=== PATIENT | female | born 1945 | race Caucasian/White ===

== ENCOUNTER 2019-12-10 13:03 | Emergency (ER) | payer MEDICARE, BC ==
[~2019-12-10] VITALS: Ht 160 cm; Wt 56.7 kg
[~2019-12-10 13:03] MED LIST: Amaryl2 MG PO; BENZONATATE100 M1 PO; FLUDROCORTISON0.1 MG PO; INSULIN PEN NE1 EACH MC; KLOR-CON M2020 ME1 PO; MAGNESIUM400 M1 PO; METOPROLOL25 MG PO; MIDODRINE HCL2.5 MG PO; NOVOLOG FL100 UNIT/2 SQ; Novolog SQ; PANTOPRAZOLE SO40 MG PO; PLAVIX75 M1 PO; PREDNISONE5 MG PO; TACROLIMUS1 M1 PO; VITAMIN D3400 UNI1 PO
[2019-12-10 14:18] LABS: BASO % 0.2 % (0.0-1.0); EOS % 0.1 % (1.0-4.0); HEMATOCRIT 40.9 % (37.0-47.0); LYMPH % 8.4 % (27.0-41.0); MEAN CELL VOLUME 89.3 fl (81.0-99.0); MEAN CORPUSCULAR HGB 28.2 pg (27.0-31.0); MEAN CORPUSCULAR HGB CONC 31.5 g/dl (33.0-37.0); MEAN PLATELET VOLUME 10.2 fl (9.6-12.3); MONO # 0.9 10*3/uL (0.1-1.0); MONO % 7.6 % (3.0-9.0); NEUT % 83.3 % (47.0-73.0); PLATELET COUNT AUTOMATED 274 10*3/uL (130-400); RED BLOOD COUNT 4.58 10*6/uL (4.10-5.10); RED CELL DISTRI WIDTH 14.1 % (0-14.5); WHITE BLOOD COUNT 12.1 10*3/uL (4.8-10.8)
[2019-12-10 14:36] LABS: ALBUMIN 2.7 gm/dl (3.1-4.5); CREATININE 1.28 mg/dL (0.55-1.02); POTASSIUM 4.6 mmol/L (3.5-5.1); TOTAL PROTEIN 7.8 gm/dL (6.4-8.2); URIC ACID 6.3 mg/dL (2.6-6.0)
[2019-12-10] MEDS ORDERED: NORCO 5-325 TA1 EACH PO (15:40)
[2019-12-10] MEDS ORDERED: COLCHICINE0.6 M2 PO (15:40)
== END 2019-12-10 15:53 | disposition home or self-care (01) ==
LOC: ED 13:03
PROVIDERS: Nurse Practitioner Family
DX: M10.9 Gout, unspecified (principal); M25.531 Pain in right wrist; Z88.0 Allergy status to penicillin; Z88.2 Allergy status to sulfonamides; Z88.1 Allergy status to other antibiotic agents; Z79.899 Other long term (current) drug therapy

== ENCOUNTER → 2020-08-19 | Outpatient (CLI) | payer MEDICARE, BC ==
[~2020-08-19] MED LIST changes: +COLCHICINE0.6 M2 PO; +NORCO 5-325 TA1 EACH PO
== END | disposition home or self-care (01) ==
LOC: RAD 10:51
PROVIDERS: ATTEND Nurse Practitioner Primary Care
DX: J44.9 Chronic obstructive pulmonary disease, unspecified (principal); M43.8X4 Other specified deforming dorsopathies, thoracic region